=== PATIENT | female | born 1985 | race Caucasian/White ===

== ENCOUNTER 2023-07-31 04:03 | Day surgery (SDC) | payer OTHER ==
[2023-07-23 17:14] VITALS: BMI 34.7
[2023-07-31] MEDS ORDERED: BUPIVACAINE HCL/PF 0.5% (5MG/ML) 10 ML VIAL ONE (07:27)
[2023-07-31] MEDS ORDERED: LIDOCAINE HCL/PF 1% SDV 5ML VIAL ONE (07:27)
[2023-07-31] MEDS ORDERED: TRIAMCINOLONE ACET 40MG/1ML VIAL ONE (07:27)
[2023-07-31 08:28] VITALS: TEMP 98.1
[2023-07-31] MEDS ORDERED: LIDOCAINE 1% P/F 10 MG/ML VIAL INF ONE (10:03)
[2023-07-31] MEDS ORDERED: IOHEXOL 180 MG/1 ML ML IJ ONE (10:05)
[2023-07-31] MEDS ORDERED: BUPIVACAINE HCL/PF 0.5% (5MG/ML) 10 ML VIAL IJ ONE (10:06)
[2023-07-31] MEDS ORDERED: TRIAMCINOLONE ACET 40MG/1ML VIAL IM ONE (10:06)
[2023-07-31 10:24] VITALS: BP 114/72; PULSE 59; RESP 20
[2023-07-31] MEDS ORDERED: ACETAMINOPHEN 500 MG TABLET (FP) PO PRN (11:09)
== END 2023-07-31 11:11 | disposition home or self-care (01) ==
LOC: JASU-SURG 04:03
PROVIDERS: ATTEND Pain Medicine Pain Medicine
PROC: 3E0U3BZ Introduction of Anesthetic Agent into Joints, Percutaneous Approach (ICD-10-PCS; 2023-07-31)
PROC: 3E0U33Z Introduction of Anti-inflammatory into Joints, Percutaneous Approach (ICD-10-PCS; principal; 2023-07-31 10:00)
DX: M53.3 Sacrococcygeal disorders, not elsewhere classified (principal)
CPT/HCPCS: 76000-TC-FY; 81025